=== PATIENT | female | born 1940 | race Caucasian/White ===

== ENCOUNTER 2023-03-03 20:38 | Inpatient (IN) | payer OTHER ==
[2023-03-03] MEDS ORDERED: CO Q-10 CAPSULE 50 MG PO SCH (21:25)
[2023-03-03] MEDS ORDERED: traMADol HCl 50 MG TAB PO SCH (21:25)
[2023-03-03] MEDS ORDERED: traMADol HCl 50 MG TAB PO PRN (21:29)
[2023-03-03] MEDS ORDERED: Melatonin 3 MG TAB PO PRN ×2 (21:31→21:34)
[2023-03-03] MEDS ORDERED: Meclizine HCl 25 MG TAB PO PRN (21:31)
[2023-03-03] MEDS ORDERED: Ondansetron ODT 4 MG TAB PO PRN (21:31)
[2023-03-03] MEDS ORDERED: Milk Of Magnesia 30 ML UDCUP PO PRN ×2 (21:31→21:34)
[2023-03-03] MEDS ORDERED: Lactulose 20 GM (30 mL) UDCUP PO PRN ×2 (21:31→21:34)
[2023-03-03] MEDS ORDERED: Acetaminophen 325 MG TAB PO PRN (21:31)
[2023-03-03] MEDS ORDERED: Escitalopram Oxalate 10 mg Tablet PO SCH (21:31)
[2023-03-03] MEDS ORDERED: Aspirin Chewable 81 MG TAB PO SCH (21:31)
[2023-03-03 22:40] VITALS: BMI 30.5
[2023-03-04] MEDS: Thyroid 60 MG TAB PO SCH (05:51)
[2023-03-04] MEDS: Furosemide 40 MG TAB PO SCH (08:10)
[2023-03-04] MEDS: Carvedilol 3.125 MG TAB PO SCH ×3 (08:10→21:50)
[2023-03-04 09:22] LABS: INR-International Normal Ratio 2.2
[2023-03-04] MEDS ORDERED: Ondansetron ODT 4 MG TAB PO PRN (14:40)
[2023-03-04] MEDS ORDERED: Acetaminophen 325 MG TAB PO PRN (14:40)
[2023-03-04] MEDS ORDERED: Melatonin 3 MG TAB PO PRN (14:40)
[2023-03-04] MEDS ORDERED: Non-Formulary Item 1 EACH (Warfarin Sodium [Warfarin Sodium] 4 MG Tablet) PO SCH (14:45)
[2023-03-04] MEDS ORDERED: Warfarin Sodium 2 MG TAB PO SCH ×2 (14:45→17:00)
[2023-03-04 15:23] LABS: Troponin I 0.027 ng/mL (< 0.028)
[2023-03-04] MEDS ORDERED: Iopamidol 370 76% 100 ML VIAL ONE (15:36)
[2023-03-04] MEDS: traMADol HCl 50 MG TAB PO SCH (21:49)
[2023-03-05] MEDS: Thyroid 60 MG TAB PO SCH ×3 (04:35→04:40)
[2023-03-05 05:39] LABS: INR-International Normal Ratio 2.1; Prothrombin Time 24.1 sec (12.0-14.7)
[2023-03-05] MEDS ORDERED: Furosemide 40 MG TAB PO SCH (07:30)
[2023-03-05] MEDS: traMADol HCl 50 MG TAB PO SCH (08:51)
[2023-03-05] MEDS: Carvedilol 3.125 MG TAB PO SCH (08:54)
[2023-03-05] MEDS ORDERED: CO Q-10 CAPSULE 100 MG PO SCH (09:00)
[2023-03-05] MEDS ORDERED: Aspirin Chewable 81 MG TAB PO SCH (09:00)
[2023-03-05] MEDS: Furosemide 40 MG TAB PO SCH (09:00)
[2023-03-05] MEDS ORDERED: Escitalopram Oxalate 10 mg Tablet PO SCH (09:00)
[2023-03-05 09:18] LABS: Anion Gap 13 mmol/L (10-20); BUN (Urea Nitrogen) 12 mg/dL (9.8-20.1); Calc. Creatinine Clearance 74 mL/min (70-130); Calcium 8.9 mg/dL (7.8-10.44); Carbon Dioxide 33 mmol/L (23-31); Chloride 93 mmol/L (98-107); Estimated GFR 83; Glucose 87 mg/dL (83-110); Potassium 3.1 mmol/L (3.5-5.1); Sodium 136 mmol/L (136-145)
[2023-03-05 09:30] LABS: Troponin I 0.027 ng/mL (< 0.028)
[2023-03-05] MEDS ORDERED: Potassium Chloride 20 MEQ TAB PO SCH (11:15)
[2023-03-05] MEDS ORDERED: Nystatin Powder 15 GM BOT TOP PRN (11:19)
[2023-03-05 11:39] LABS: Magnesium 1.5 mg/dL (1.6-2.6)
[2023-03-05 13:53] VITALS: BP 119/79; TEMP 97.6
[2023-03-05] MEDS ORDERED: Warfarin Sodium 2 MG TAB PO SCH (17:00)
[2023-03-06] MEDS ORDERED: Warfarin Sodium 2 MG TAB PO SCH ×2 (17:00)
== END 2023-03-05 13:25 | disposition short-term general hospital (02) | DRG 189 ==
LOC: BURMED 20:38
PROVIDERS: ADMIT Family Medicine; ATTEND Family Medicine
DX: J81.1 Chronic pulmonary edema (principal); E87.6 Hypokalemia; E88.09 Other disorders of plasma-protein metabolism, not elsewhere classified; I50.9 Heart failure, unspecified; I48.91 Unspecified atrial fibrillation; I11.0 Hypertensive heart disease with heart failure; G89.29 Other chronic pain; M54.9 Dorsalgia, unspecified; Z98.890 Other specified postprocedural states; Z88.2 Allergy status to sulfonamides; Z79.82 Long term (current) use of aspirin; Z79.899 Other long term (current) drug therapy
CPT/HCPCS: 36415; 71275; 80048; 83735; 83880; 84443; 84484; 85610; 87086; Q0162; Q9967